=== PATIENT | male | born 1980 | race Caucasian/White ===

== ENCOUNTER → 2017-03-10 | Outpatient (CLI) | payer BC ==
[~2017-03-10] MED LIST: CHOL4PAC16 PO; HYDR4TAB49 PO
--- NOTE | 2017-03-10 12:58 | Diagnostic Imaging Report ---
PROCEDURE: CT sinuses without contrast TECHNIQUE: Multiple contiguous axial images were obtained through the sinuses without the use of intravenous contrast. Coronal and sagittal reformations were then performed. INDICATION: Chronic sinusitis. FINDINGS: Mucosal retention cysts are seen in the left maxillary sinus up to 2.1 x 1.4 cm in size. The minimal area of mucosal thickening or mucous retention cyst inferiorly in the right maxillary sinus is also seen. The ostiomeatal complex is patent on both sides. The ethmoidal air cells are aerated. The frontal sinuses and the sphenoidal sinuses are also well-aerated with no significant mucosal thickening or opacification. The nasal septum is deviated to the right with no significant lesion or mucosal thickening along the nasal cavity. The mastoid air cells and the middle ear cavity on both sides appear patent. The orbits appear grossly unremarkable. IMPRESSION: Mucosal retention cysts in the maxillary sinuses more prominent on the left side. Dictated by: Dictated on workstation # [id number]
== END ==
LOC: RAD 12:30
PROVIDERS: ATTEND Otolaryngology Otolaryngology/Facial Plastic Surgery
DX: J32.9 Chronic sinusitis, unspecified; J34.1 Cyst and mucocele of nose and nasal sinus
CPT/HCPCS: 70486

== ENCOUNTER 2017-03-21 11:54 | Outpatient (CLI) | payer BC | END 2017-03-21 12:08 | disposition home or self-care (01) | LOC: SLEEP 11:54 | PROVIDERS: ATTEND Otolaryngology Otolaryngology/Facial Plastic Surgery | DX: G47.33 Obstructive sleep apnea (adult) (pediatric) (principal) ==

== ENCOUNTER → 2020-12-07 | Outpatient (CLI) | payer BC ==
[~2020-12-07] VITALS: Ht 165.1 cm; Wt 90.9 kg
[~2020-12-07] MED LIST changes: +GADOBUTROL 7.5 MMOL/7.5 ML (GADAVIST) VIAL IV ONE; +IOHEXOL 240 MGI/ML 50 ML (OMNIPAQUE) VIAL IV ONE
--- NOTE | 2020-12-07 12:09 | Diagnostic Imaging Report ---
PROCEDURE: MRI left joint upper extremity with contrast. TECHNIQUE: Multiplanar, multisequence intra-articular contrast-enhanced MRI of the left upper extremity was accomplished. INDICATION: Left shoulder pain, possible wrestling injury. COMPARISON: None. FINDINGS: No acute fracture is seen in the left shoulder. Alignment appears normal. There are mild degenerative changes in the glenohumeral joint. The joint is well distended with contrast. There are moderate degenerative changes in the acromioclavicular joint. There is a high-grade partial-thickness tear of the anterior fibers of the infraspinatus tendon measuring about 1 cm in width. On T1 contrast-enhanced images, this does not appear to extend through the entire thickness of the tendon and no contrast is seen in the subacromial subdeltoid bursa. There is mild fraying at the undersurface of the infraspinatus tendon. The teres minor and subscapularis tendons appear intact. The long head of the biceps tendon appears normal in course and signal. There is tearing throughout the glenoid labrum seen superiorly, and extending posteriorly (image 10 series 7). There is irregularity inferiorly, concerning for tear (image 13 series 7), and extending to the anterior labrum (image 18 series 4). No paralabral cyst is seen. The acromion has a concave undersurface without hooking. The coracoclavicular and the coracoacromial ligaments are intact. There is is fluid signal in the anterior soft tissues, likely from recent injection. There appears to be an ossific joint body in the superior subscapularis recess, could represent a fat lobule as well, measuring 1 cm in size. Soft tissues about the left shoulder demonstrate no acute abnormality. IMPRESSION: 1. Tearing throughout the glenoid labrum with no paralabral cysts seen. 2. High-grade moderate-sized partial-thickness tear of the infraspinatus tendon. 3. Degenerative changes in the left shoulder with likely anterior joint body. Dictated by: Dictated on workstation # [id number]
--- NOTE | 2020-12-07 12:18 | Diagnostic Imaging Report ---
INDICATION: Left shoulder pain. Patient brought to the procedure and placed on table in the supine position. The skin of the left shoulder was prepped and draped in usual sterile fashion. Small amount 1% lidocaine was utilized for local anesthesia. 22-gauge needle was advanced through the left shoulder rotator interval. A 15 mm solution of iodinated contrast, normal saline and gadolinium was injected under fluoroscopic observation. 16 seconds of fluoroscopy was utilized. 2 images were obtained. IMPRESSION: Successful left shoulder injection of gadolinium contrast solution, using fluoroscopy. Dictated by: Dictated on workstation # [id number]
== END ==
LOC: RAD 09:00
PROVIDERS: ATTEND Nurse Practitioner
DX: S43.432A Superior glenoid labrum lesion of left shoulder, initial encounter (principal); S46.812A Strain of other muscles, fascia and tendons at shoulder and upper arm level, left arm, initial encounter; M19.012 Primary osteoarthritis, left shoulder; X58.XXXA Exposure to other specified factors, initial encounter
CPT/HCPCS: 23350; 73040; 73222

== ENCOUNTER → 2023-06-27 | Outpatient (CLI) | payer BC ==
[~2023-06-27] MED LIST changes: -GADOBUTROL 7.5 MMOL/7.5 ML (GADAVIST) VIAL IV ONE; -IOHEXOL 240 MGI/ML 50 ML (OMNIPAQUE) VIAL IV ONE
--- NOTE | 2023-06-27 19:58 | Diagnostic Imaging Report ---
EXAMINATION: Left hand radiographs, 3 views. Right hand radiographs, 3 views. COMPARISON: None. HISTORY: 43-year-old male, bilateral hand pain. Evaluation for arthritis. FINDINGS: There is very modest osteoarthritis of the right first interphalangeal joint. The additional joint spaces are well preserved. There is no bone erosion. There is no prominent focal soft tissue swelling. There is no chondrocalcinosis. There is no periosteal reaction. There is no identified acute fracture. Bone mineralization appears to be within normal limits. IMPRESSION: 1. 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 2. Additional radiographic evaluation of the right and left hands is unremarkable. Dictated by: Dictated on workstation # [id number]
== END ==
LOC: RAD 10:22
PROVIDERS: ATTEND Internal Medicine
DX: M19.041 Primary osteoarthritis, right hand (principal)